=== PATIENT | female | born 1995 | race American Indian/Alaskan Native ===

== ENCOUNTER 2019-02-25 00:35 | Emergency (ER) | payer MEDICAID, OTHER ==
[2019-02-25] MEDS ORDERED: TYLENOL PO ONE ×2 (01:15)
[2019-02-25] MEDS ORDERED: TYLENOL ONE ×2 (01:16→01:18)
--- NOTE | 2019-02-25 03:28 | Emergency Department Report ---
- General Chief Complaint: Upper Respiratory Infection Stated Complaint: SINUS INFECTION (20WKS ) Time Seen by Provider: 02/25/19 03:23 Source: patient Mode of arrival: Ambulatory Limitations: No Limitations - History of Present Illness Initial Comments: Patient is a 23-year-old -[place] female who presents for URI with sinusitis treated for follow sinusitis for PCP but she spiked a fever yesterday and developed a antibiotics for sinusitis symptoms include sinus pain pressure or postnasal drip fever worse at night and postnasal drip symptoms are exacerbated by movement symptoms temporarily relieved with ibuprofen and Afrin nasal spray MD Complaint: fever, cough, sore throat, rhinorrhea, nasal congestion, sinus pain Onset/Timin -: week(s) Severity: moderate Severity scale (0 -10): 7 Quality: sharp Consistency: constant Improves With: nothing Worsens With: activity Context: sick contacts, other Associated Symptoms: fever, chills, rhinorrhea, nasal congestion, sore throat, cough, nausea, ear pain. denies: chest pain, vomiting, diarrhea, dysuria, rash, confusion, right sweats, weight loss, epistaxis, hoarseness Treatments Prior to Arrival: none - Related Data Previous Rx's Medication Instructions Recorded Last Taken Type Clindamycin [Clindamycin CAP] 300 mg PO Q8H 10 Days #30 cap 02/25/19 Unknown Rx Fluticasone [Flonase] 1 spray NS QDAY #1 bottle 02/25/19 Unknown Rx diphenhydrAMINE [Benadryl CAP] 25 mg PO Q8HR PRN #30 capsule 02/25/19 Unknown Rx Allergies Allergy/AdvReac Type Severity Reaction Status Date / Time metronidazole [From Flagyl] Allergy Shortness Verified 02/25/19 00:59 of Breath ED Review of Systems ROS: Stated complaint: SINUS INFECTION (20WKS ) Other details as noted in HPI Constitutional: chills, fever Eyes: denies: eye pain, eye discharge, vision change ENT: ear pain, throat pain, congestion Respiratory: cough. denies: shortness of breath, wheezing Cardiovascular: denies: chest pain, palpitations Endocrine: no symptoms reported Gastrointestinal: denies: abdominal pain, nausea, vomiting, diarrhea, constipation Genitourinary: denies: urgency, dysuria, frequency, hematuria, discharge Musculoskeletal: denies: back pain, joint swelling, arthralgia Skin: denies: rash, lesions Neurological: denies: headache, weakness, numbness, paresthesias, confusion, vertigo Psychiatric: denies: anxiety, depression Hematological/Lymphatic: denies: easy bleeding, easy bruising ED Past Medical Hx - Past Medical History Previous Medical History?: No - Surgical History Past Surgical History?: No - Social History Smoking Status: Never Smoker Substance Use Type: None - Medications Home Medications: Home Medications Medication Instructions Recorded Confirmed Last Taken Type Clindamycin [Clindamycin CAP] 300 mg PO Q8H 10 Days #30 cap 02/25/19 Unknown Rx Fluticasone [Flonase] 1 spray NS QDAY #1 bottle 02/25/19 Unknown Rx diphenhydrAMINE [Benadryl CAP] 25 mg PO Q8HR PRN #30 capsule 02/25/19 Unknown Rx ED Physical Exam - General Limitations: No Limitations General appearance: alert, in no apparent distress - Head Head exam: Present: atraumatic, normocephalic - Eye Eye exam: Present: normal appearance, PERRL, EOMI Pupils: Present: normal accommodation - ENT ENT exam: Present: mucous membranes moist - Expanded ENT Exam Expanded Ear exam: Present: normal external inspection, other (bilat sinus pain and pressure maxillary and frontal ) TM/Canal exam: Erythema: Right TM, Left TM Mouth exam: Absent: trismus Teeth exam: Present: normal inspection Throat exam: Positive: tonsillar erythema, tonsillomegaly, other (uvula midline no exudate no lesion no stridor ). Negative: tonsillar exudate, R peritonsillar mass, L peritonsillar mass - Neck Neck exam: Present: normal inspection, full ROM. Absent: tenderness, lymphadenopathy, thyromegaly - Respiratory Respiratory exam: Present: normal lung sounds bilaterally. Absent: respiratory distress, wheezes, rhonchi - Cardiovascular Cardiovascular Exam: Present: regular rate, normal rhythm, normal heart sounds. Absent: systolic murmur, diastolic murmur, rubs, gallop - GI/Abdominal GI/Abdominal exam: Present: soft, normal bowel sounds. Absent: tenderness, bruit, hernia - Rectal Rectal exam: Present: deferred - Extremities Exam Extremities exam: Present: normal inspection, full ROM - Back Exam Back exam: Present: normal inspection, full ROM. Absent: tenderness, CVA tenderness (R), CVA tenderness (L), muscle spasm, rash noted - Neurological Exam Neurological exam: Present: alert, oriented X3, CN II-XII intact, normal gait - Psychiatric Psychiatric exam: Present: normal affect, normal mood - Skin Skin exam: Present: warm, dry, intact, normal color. Absent: rash ED Course Vital Signs 02/25/19 02/25/19 00:39 00:40 Temperature 98.4 F 98.4 F Pulse Rate 100 H 98 H Respiratory 18 18 Rate Blood Pressure 113/69 113/69 O2 Sat by Pulse 100 100 Oximetry ED Medical Decision Making - Medical Decision Making this is likely sinusit, plan: clindamycin, tylenol, flonase, loratadine, follow up with pcp in 2-3 days , pt verbalized agreement and understanding of discharge plan. will follow up with pcp in 2- 3days pt verbalized agreement and understnading ok Critical care attestation.: If time is entered above; I have spent that time in minutes in the direct care of this critically ill patient, excluding procedure time. ED Disposition Clinical Impression: Sinusitis Qualifiers: Sinusitis location: maxillary Chronicity: acute Recurrence: non-recurrent Qualified Code(s): J01.00 - Acute maxillary sinusitis, unspecified Disposition: - TO HOME OR SELFCARE Is pt being admited?: No Does the pt Need Aspirin: No Condition: Stable Instructions: Sinusitis (ED) Prescriptions: diphenhydrAMINE [Benadryl CAP] 25 mg PO Q8HR PRN #30 capsule PRN Reason: pain Clindamycin [Clindamycin CAP] 300 mg PO Q8H 10 Days #30 cap Fluticasone [Flonase] 1 spray NS QDAY #1 bottle Referrals: [facility] [Outside] - 3-5 Days Forms: Work/School Release Form(ED) Time of Disposition: 03:41
[2019-02-25 03:44] VITALS: BP 98/60
== END 2019-02-25 04:32 | disposition home or self-care (01) ==
LOC: ED 00:35
DX: O99.512 Diseases of the respiratory system complicating pregnancy, second trimester (principal); J01.00 Acute maxillary sinusitis, unspecified; J01.10 Acute frontal sinusitis, unspecified; Z88.8 Allergy status to other drugs, medicaments and biological substances; Z3A.20 20 weeks gestation of pregnancy
CPT/HCPCS: 99282